=== PATIENT | female | born 1950 | race Caucasian/White ===

== ENCOUNTER → 2017-11-15 09:09 | Outpatient (CLI) | payer OTHER, SELFPAY ==
--- NOTE | 2017-11-15 09:20 | DI.MRI.S_ITS ---
PROCEDURE: MR THORACIC SPINE WO CON INDICATIONS: Thoracic radiculopathy TECHNIQUE: Noncontrast sagittal T1 spine echo and T2 fast spin echo, sagittal STIR, axial T1 and T2 fast spin echo through the thoracic spine. COMPARISON: [facility], MR, MR CERVICAL SPINE WITHOUT CONTRAST, 07/23/2017, 10:24. FINDINGS: Image quality: Excellent. Alignment and Curvature: There is normal bony alignment except for slight levoscoliosis centered at the lower thoracic spine. Bone Marrow: Marrow is of normal overall signal except at T2 where an ovoid centrally positioned vertebral body presumed hemangioma is again seen previously present on cervical MR scanning 07/23/17. No acute vertebral body compression fractures. There is mild to moderate degenerative disc disease along the thoracic spine, but no significant spinal or foraminal stenosis is associated. Degenerative disc disease is most prominent at T8-9 with a mild degree of adjacent edema in the vertebral endplates and anterior subcortical marrow space as a result. Spinal Cord: Visualized spinal cord is normal in size and signal. Paraspinous Soft Tissues: No paravertebral masses. Miscellaneous: On axial images, central canal and foramina appear widely patent at all scanned levels. IMPRESSION: Again noted is a T2 vertebral body hemangioma centrally positioned within the T2 marrow space, present on prior cervical MR scanning that included that area. Along the cervical and visualized thoracic spine no worsening degenerative changes are seen from the area included during cervical MR scanning 07/23/17. No compression fracture is found. There is a mild inflammatory component of degenerative disc disease with a slight degree of associated marrow edema adjacent to the T8-T9 anterior vertebral endplates. No disc herniation is seen, and no paravertebral mass or inflammatory process is found. No suspicion for discitis or osteomyelitis. Dictated by: Bridger Sebastian M.D. on 11/15/2017 at 11:04 Approved by: Bridger Sebastian M.D. on 11/15/2017 at 11:11
== END ==
PROVIDERS: Visit Provider Physical Medicine & Rehabilitation
DX: M54.14 Radiculopathy, thoracic region (principal); D18.09 Hemangioma of other sites; M51.34 Other intervertebral disc degeneration, thoracic region
CPT/HCPCS: 72146

== ENCOUNTER → 2017-12-20 08:31 | Outpatient (CLI) | payer OTHER, SELFPAY ==
--- NOTE | 2017-12-20 08:37 | DI.MRI.S_ITS ---
PROCEDURE: MR LUMBAR SPINE WO CON INDICATIONS: LOW BACK PAIN TECHNIQUE: Noncontrast sagittal T1 spin echo and T2 fast echo, sagittal STIR, axial T1 and T2 fast spin echo through the lumbar spine. In cases with scoliosis, additional coronal T2 fast spin echo may be performed. COMPARISON: [facility], MR, MR THORACIC SPINE WO CON, 11/15/2017, 10:01. FINDINGS: Image quality: Excellent. Alignment and Curvature: S-shaped scoliotic curvature is seen on rabble furnace tender images. Minimal retrolisthesis is seen at L1-L2 and L2-L3. There is minimal anterolisthesis seen at L5-S1. Bone Marrow: Marrow is of normal overall signal. No acute vertebral body compression fractures. Spinal Cord: Conus medullaris terminates at the T12-L1 level. Visualized cord demonstrates normal signal and size. Paraspinous Soft Tissues: No paravertebral masses. Left peripelvic renal cysts are incidentally noted. T12-L1: At least moderate loss of disc height and disc signal can be seen. Mild generalized disc bulge is seen. Mild facet joint hypertrophy is seen. There is moderate right-sided and no significant left-sided neural foraminal narrowing seen. No significant central canal narrowing is seen. L1-L2: At least moderate loss of disc height and disc signal are seen. Mild loss of disc height is seen. Loss of disc signal is seen. There is mild to moderate right-sided and moderate left-sided neural narrowing seen. Mild central canal narrowing is seen. L2-L3: Moderate loss of disc height is seen. Loss of disc signal is seen. Mild generalized disc bulge is seen. Mild facet joint hypertrophy is seen. There is mild right-sided and minimal left-sided neural foraminal narrowing seen. Mild central canal narrowing is seen. L3-L4: Moderate loss of disc height is seen. Loss of disc signal is seen. Mild to moderate disc bulge is seen. Moderate bilateral neural foraminal narrowing is seen, left worse than right. Mild central canal narrowing is seen. L4-L5: Mild loss of disc height is seen. Loss of disc signal is seen. Mild generalized disc bulge is seen. Moderate facet joint hypertrophy is seen. No significant neural foraminal narrowing is seen. Mild central canal narrowing is seen. L5-S1: Mild to moderate loss of disc height and disc signal are seen. Moderate disc bulge is seen. Moderate to prominent facet hypertrophy is seen. There is moderate right-sided and no significant left-sided neural foraminal narrowing seen. Minimal central canal narrowing is seen. IMPRESSION: Multiple levels of lumbar spine degenerative change are seen, including moderate bilateral neural foraminal narrowing at L3-L4. Dictated by: Dennys Garcia M.D. on 12/20/2017 at 9:22 Approved by: Dennys Garcia M.D. on 12/20/2017 at 9:30
== END ==
PROVIDERS: PCP Family Medicine; Visit Provider Physical Medicine & Rehabilitation
DX: M51.36 Other intervertebral disc degeneration, lumbar region (principal); M51.37 Other intervertebral disc degeneration, lumbosacral region; M48.061 Spinal stenosis, lumbar region without neurogenic claudication; M48.07 Spinal stenosis, lumbosacral region; M54.5 Low back pain
CPT/HCPCS: 72148

== ENCOUNTER 2018-01-08 07:26 | Outpatient (CLI) | payer OTHER, SELFPAY ==
[2018-01-08] VITALS (13 sets, daily range): BP systolic 90–125; BP diastolic 55–73; PULSE 59–67; RESP 16–20; TEMP 36.1; O2SAT 99–100
--- NOTE | 2018-01-08 07:27 | DI.RAD.S_ITS ---
PROCEDURE: PAIN L/S TRANSFORAMINAL INJECT INDICATIONS: HNP with right lower extremity radicular FINDINGS: Fluoroscopic spot filming was performed to verify placement of spinal needles at the L1-L2 level(s), as labeled on the films. Appropriate location(s) of the needle tip(s) was confirmed by injection of iodinated contrast. IMPRESSION: Successful transforaminal epidural steroid injection localization position. Dictated by: Bridger Sebastian M.D. on 01/10/2018 at 11:35 Approved by: Bridger Sebastian M.D. on 01/10/2018 at 11:50
--- NOTE | 2018-01-08 08:13 | P.PCN_ITS ---
Procedures Date/Time Date of procedure: 01/08/18 Time of procedure: 08:10 General Procedure description: PROVIDER: Nasim Child DO Operative Note PREOP DIAGNOSIS 1. FORAMINAL STENOSIS WITH LE SYMPTOMS, POST OP DIAGNOSIS 1. FORAMINAL STENOSIS WITH LE SYMPTOMS, PROCEDURES 1. FLUOROSCOPICALLY GUIDED CONTRAST CONTROLLED TRANSFORAMINAL EPIDURAL STEROID INJECTION - RIGHT L1/2 TFESI SURGEON: Nasim Child, DO INDICATIONS Sharron is referred by Dr. Kumar for treatment of Foraminal Stenosis with right LE Symptoms FINDINGS Foraminal Nerve Root Compression secondary to disc disease and facet hypertrophy DESCRIPTION OF PROCEDURE Following denial of allergy and review of potential side effects and complications, including, but not necessarily limited to, infection, allergic reaction, local tissue breakdown, stroke, temporary or permanent nerve injury, paralysis, and possible , the patient indicated that the patient understood and agreed to proceed. An informed consent document was signed by the patient, witnessed by a nurse, and placed in the patient's chart. Additionally, other treatment options including medications, modalities, and physical therapy were reviewed with the patient. After review of previous anaesthesic history and IV conscious sedation the patient was deemed safe to proceed with todays procedure with IV conscious sedation as ASA class II designation. Safety time-out was performed to confirm patient ID, procedure to be performed and site of procedure. IV sedation was accomplished with a combination of 3mg was administered by the RN after DO order , titrated to patient comfort during the course of the procedure while the patient remained responsive to all verbal commands In the prone position following sterile prep and drape of the lumbar region, the right L1/2 posterior neuroforamen was identified fluoroscopically. The skin was anesthetized via a 25-gauge 1.5-inch needle with 1% lidocaine solution. At this point, a 25-gauge 3.5-inch spinal needle was atraumatically introduced and advanced under fluoroscopic guidance through the posterior right L1/2 neuroforamen to approximately the anterior aspect of the canal. Depth was confirmed on lateral view. Following negative aspiration, injection of approximately 1.5 cc of Isovue 200 under live fluoroscopy in the AP view confirmed excellent flow along the nerve root, into the epidural space without vascular or intrathecal uptake observed Radiological data, including multiple fluoroscopic views of the lumbosacral spine, reveal a spinal needle at the right L1/2 posterior neuroforamen. Subsequent views show flow of contrast material flowing superiorly and inferiorly along the nerve root confirming epidural flow. Subsequently, a test dose of 1.5 cc of 1% lidocaine solution was administered and patient was observed for two minutes for signs or symptoms of complications , including abdominal pain, shortness of breath, bilateral upper or lower extremity weakness, nausea and vomiting, prior to steroid injection. At this point, a total of 3 cc or 20 mg of dexamethasone and 80mg Depo medrol was injected without incident. The patient tolerated the procedure well without signs or symptoms of complications prior to transfer to the recovery area continued monitoring without incident. The patient was then transferred to the recovery area where they were observed for an appropriate time after the injection. The patient reported a VAS score of 7 prior to the procedure and a post-procedure VAS of 0. Total Fluoroscopy Time: 24.2 seconds Total Conscious Sedation Time: 24min POST OP INSTRUCTIONS The patient was provided a Pain Log to continue to record their response to the target-specific procedure prior to follow-up visit with their referring physician. Additionally, specific post-injection care instructions and a contact number to our office were provided if concerns arise regarding possible complications associated with the procedure are suspected. Nasim Child, Complications: none
[2018-01-08] MEDS: MIDAZOLAM 5 MG/5 ML VIAL IV (08:33)
[2018-01-08] MEDS: IOPAMIDOL 15 ML VIAL 3 ML INJ (08:44)
[2018-01-08] MEDS: BUPIVACAINE 0.25% (PF) VIAL 2 ML INJ (08:45)
[2018-01-08] MEDS: methylPREDNISolone acetate 80 MG/ML VIAL INJ (08:45)
[2018-01-08] MEDS: DEXAMETHASONE 10 MG/ML VIAL 20 MG INJ (08:45)
--- NOTE | 2018-01-08 09:30 | PC.NURSE ---
Continues weak on right leg. Stays for observation
== END 2018-01-08 10:48 ==
LOC: RAD 07:26
PROVIDERS: PCP Family Medicine; Visit Provider Physical Medicine & Rehabilitation
DX: M51.36 Other intervertebral disc degeneration, lumbar region (principal); M54.16 Radiculopathy, lumbar region
CPT/HCPCS: 64483; 99152; J1040; J1100; J2250

== ENCOUNTER → 2018-01-31 12:26 | Outpatient (CLI) | payer OTHER, SELFPAY ==
--- NOTE | 2018-01-31 12:27 | DI.RAD.S_ITS ---
PROCEDURE: XR LUMBAR SPINE MIN 4V INDICATIONS: eval TECHNIQUE: 5 views of the lumbar spine were acquired. COMPARISON: None. FINDINGS: Bones: There is L2 compression fracture with minimal height loss. Diffuse endplate spurring and sclerosis is seen. No other vertebral body fractures identified. Lower lumbar spine facet arthropathy. Grade 1 retrolisthesis of L1 on L2 and trace retrolisthesis of L3 on L4. Grade 1 anterolisthesis of L5 on S1. Moderate narrowing of the L5-S1 disc space as well as the L1-L2 and L2-L3 disc spaces. Bilateral mild hip joint degeneration. There is dextrocurvature centered at L3 Soft tissues: Overlying bowel gas pattern is normal. No suspicious soft tissue calcifications. Oblique images: No pars defects although evaluation is suboptimal due to arthritic changes. IMPRESSION: Mild L1 compression fracture. Diffuse multilevel lumbar disc degeneration as above. Grade 1 retrolisthesis of L1-L2. Lower lumbar facet arthropathy. Dictated by: Shai Mcqueen M.D. on 01/31/2018 at 14:24 Approved by: Shai Mcqueen M.D. on 01/31/2018 at 14:27
== END ==
PROVIDERS: PCP Family Medicine; Visit Provider Physical Medicine & Rehabilitation
DX: M51.26 Other intervertebral disc displacement, lumbar region (principal); M48.56XA Collapsed vertebra, not elsewhere classified, lumbar region, initial encounter for fracture; M51.36 Other intervertebral disc degeneration, lumbar region; M43.16 Spondylolisthesis, lumbar region; M47.816 Spondylosis without myelopathy or radiculopathy, lumbar region
CPT/HCPCS: 72110

== ENCOUNTER 2018-02-12 10:57 | Outpatient (CLI) | payer OTHER, SELFPAY ==
[2018-02-12] VITALS (12 sets, daily range): BP systolic 98–137; BP diastolic 61–98; PULSE 67–89; RESP 16–20; TEMP 36.1; O2SAT 98–100
--- NOTE | 2018-02-12 10:58 | DI.RAD.S_ITS ---
PROCEDURE: PAIN L/S TRANSFORAMINAL INJECT INDICATIONS: INTERVERTEBRAL DISC DISPLACEMENT FINDINGS: Fluoroscopic spot filming was performed to verify placement of spinal needles at the right L3-4 intervertebral neural foramen, as labeled on the films. Appropriate location(s) of the needle tip(s) was confirmed by injection of iodinated contrast. IMPRESSION: Successful needle tip localization for transforaminal epidural steroid injection on the right at the L3-4 neural foramen. Dictated by: Bridger Sebastian M.D. on 02/12/2018 at 15:41 Approved by: Bridger Sebastian M.D. on 02/12/2018 at 15:41
[2018-02-12] MEDS: MIDAZOLAM 5 MG/5 ML VIAL IV (11:51)
[2018-02-12] MEDS: BUPIVACAINE 0.25% (PF) VIAL 2 ML INJ (11:58)
[2018-02-12] MEDS: DEXAMETHASONE 10 MG/ML VIAL 20 MG INJ (11:59)
[2018-02-12] MEDS: IOPAMIDOL 15 ML VIAL 3 ML INJ (11:59)
[2018-02-12] MEDS: methylPREDNISolone acetate 80 MG/ML VIAL INJ (11:59)
--- NOTE | 2018-02-12 12:12 | P.PCN_ITS ---
Procedures Date/Time Date of procedure: 02/12/18 Time of procedure: 12:10 General Procedure description: PROVIDER: Nasim Child DO Operative Note PREOP DIAGNOSIS 1. FORAMINAL STENOSIS WITH LE SYMPTOMS, POST OP DIAGNOSIS 1. FORAMINAL STENOSIS WITH LE SYMPTOMS, PROCEDURES 1. FLUOROSCOPICALLY GUIDED CONTRAST CONTROLLED TRANSFORAMINAL EPIDURAL STEROID INJECTION - RIGHT L3/4 TFESI SURGEON: Nasim Child, DO INDICATIONS Sharron is referred by Dr. Kumar for treatment of Foraminal Stenosis with right LE Symptoms FINDINGS Foraminal Nerve Root Compression secondary to disc disease and facet hypertrophy DESCRIPTION OF PROCEDURE Following denial of allergy and review of potential side effects and complications, including, but not necessarily limited to, infection, allergic reaction, local tissue breakdown, stroke, temporary or permanent nerve injury, paralysis, and possible , the patient indicated that the patient understood and agreed to proceed. An informed consent document was signed by the patient, witnessed by a nurse, and placed in the patient's chart. Additionally, other treatment options including medications, modalities, and physical therapy were reviewed with the patient. After review of previous anaesthesic history and IV conscious sedation the patient was deemed safe to proceed with todays procedure with IV conscious sedation as ASA class II designation. Safety time-out was performed to confirm patient ID, procedure to be performed and site of procedure. IV sedation was accomplished with a combination of 3mg was administered by the RN after DO order , titrated to patient comfort during the course of the procedure while the patient remained responsive to all verbal commands In the prone position following sterile prep and drape of the lumbar region, the right L3/4 posterior neuroforamen was identified fluoroscopically. The skin was anesthetized via a 25-gauge 1.5-inch needle with 1% lidocaine solution. At this point, a 25-gauge 3.5-inch spinal needle was atraumatically introduced and advanced under fluoroscopic guidance through the posterior right L3/4 neuroforamen to approximately the anterior aspect of the canal. Depth was confirmed on lateral view. Following negative aspiration, injection of approximately 1.5 cc of Isovue 200 under live fluoroscopy in the AP view confirmed excellent flow along the nerve root, into the epidural space without vascular or intrathecal uptake observed Radiological data, including multiple fluoroscopic views of the lumbosacral spine, reveal a spinal needle at the right L3/4 posterior neuroforamen. Subsequent views show flow of contrast material flowing superiorly and inferiorly along the nerve root confirming epidural flow. Subsequently, a test dose of 1.5 cc of 1% lidocaine solution was administered and patient was observed for two minutes for signs or symptoms of complications , including abdominal pain, shortness of breath, bilateral upper or lower extremity weakness, nausea and vomiting, prior to steroid injection. At this point, a total of 3 cc or 20 mg of dexamethasone and 80mg Depo medrol was injected without incident. The patient tolerated the procedure well without signs or symptoms of complications prior to transfer to the recovery area continued monitoring without incident. The patient was then transferred to the recovery area where they were observed for an appropriate time after the injection. The patient reported a VAS score of 7 prior to the procedure and a post-procedure VAS of 0. Total Fluoroscopy Time: 24.2 seconds Total Conscious Sedation Time: 24min POST OP INSTRUCTIONS The patient was provided a Pain Log to continue to record their response to the target-specific procedure prior to follow-up visit with their referring physician. Additionally, specific post-injection care instructions and a contact number to our office were provided if concerns arise regarding possible complications associated with the procedure are suspected. Nasim Child, Complications: none
== END 2018-02-12 12:55 ==
LOC: RAD 10:57
PROVIDERS: PCP Family Medicine; Visit Provider Physical Medicine & Rehabilitation
DX: M48.061 Spinal stenosis, lumbar region without neurogenic claudication (principal); M51.16 Intervertebral disc disorders with radiculopathy, lumbar region
CPT/HCPCS: 64483; 99152; J1040; J1100; J2250

== ENCOUNTER 2018-08-05 10:46 | Outpatient (CLI) | payer OTHER, SELFPAY ==
[2018-08-05] VITALS (9 sets, daily range): BP systolic 99–128; BP diastolic 55–81; PULSE 67–81; RESP 16–18; TEMP 37.3; O2SAT 96–99
--- NOTE | 2018-08-05 10:47 | DI.RAD.S_ITS ---
PROCEDURE: PAIN L/S TRANSFORAMINAL INJECT INDICATIONS: INTERVERTEBRAL DISC DISPLACEMENT FINDINGS: Fluoroscopic spot filming was performed to verify placement of spinal needles at the left L3-4 neural foramen level, as labeled on the films. Appropriate location(s) of the needle tip(s) was confirmed by injection of iodinated contrast. IMPRESSION: Successful left L3 perineural injection for epidural steroid administration. Dictated by: Bridger Sebastian M.D. on 08/05/2018 at 16:33 Approved by: Bridger Sebastian M.D. on 08/05/2018 at 16:33
[2018-08-05] MEDS: MIDAZOLAM 5 MG/5 ML VIAL IV (14:57)
[2018-08-05] MEDS: BUPIVACAINE 0.25% (PF) VIAL 2 ML INJ (15:01)
[2018-08-05] MEDS: DEXAMETHASONE 10 MG/ML VIAL 20 MG INJ (15:02)
[2018-08-05] MEDS: IOPAMIDOL 15 ML VIAL 3 ML INJ (15:02)
--- NOTE | 2018-08-05 15:04 | PC.NURSE ---
ASSISTING PT OFF TABLE AND TRANSPORTING TO POST PROC AREA IN STABLE CONDITION
--- NOTE | 2018-08-05 15:10 | PM.PROC.1 ---
Procedures Date/Time Date of procedure: 08/05/18 Time of procedure: 15:10 General Procedure description: PROVIDER: Nasim Child DO Operative Note PREOP DIAGNOSIS 1. FORAMINAL STENOSIS WITH LE SYMPTOMS, POST OP DIAGNOSIS 1. FORAMINAL STENOSIS WITH LE SYMPTOMS, PROCEDURES 1. FLUOROSCOPICALLY GUIDED CONTRAST CONTROLLED TRANSFORAMINAL EPIDURAL STEROID INJECTION - LEFT L3/4 TFESI SURGEON: Nasim Child, DO INDICATIONS Sharron is referred by Dr. Maciel for treatment of Foraminal Stenosis with left LE Symptoms FINDINGS Foraminal Nerve Root Compression secondary to disc disease and facet hypertrophy. DESCRIPTION OF PROCEDURE Following denial of allergy and review of potential side effects and complications, including, but not necessarily limited to, infection, allergic reaction, local tissue breakdown, stroke, temporary or permanent nerve injury, paralysis, and possible , the patient indicated that the patient understood and agreed to proceed. An informed consent document was signed by the patient, witnessed by a nurse, and placed in the patient's chart. Additionally, other treatment options including medications, modalities, and physical therapy were reviewed with the patient. After review of previous anaesthesic history and IV conscious sedation the patient was deemed safe to proceed with todays procedure with IV conscious sedation as ASA class II designation. Safety time-out was performed to confirm patient ID, procedure to be performed and site of procedure. IV sedation was accomplished with a combination of 3mg of Versed was administered by the RN after DO order, titrated to patient comfort during the course of the procedure while the patient remained responsive to all verbal commands In the prone position following sterile prep and drape of the lumbar region, the left L3/4 posterior neuroforamen was identified fluoroscopically. The skin was anesthetized via a 25-gauge 1.5-inch needle with 1% lidocaine solution. At this point, a 25-gauge 3.5-inch spinal needle was atraumatically introduced and advanced under fluoroscopic guidance through the posterior left L3/4 neuroforamen to approximately the anterior aspect of the canal. Depth was confirmed on lateral view. Following negative aspiration, injection of approximately 1.5 cc of Isovue 200 under live fluoroscopy in the AP view confirmed excellent flow along the nerve root, into the epidural space without vascular or intrathecal uptake observed Radiological data, including multiple fluoroscopic views of the lumbosacral spine, reveal a spinal needle at the left L3/4 posterior neuroforamen. Subsequent views show flow of contrast material flowing superiorly and inferiorly along the nerve root confirming epidural flow. Subsequently, a test dose of 1.5 cc of 1% lidocaine solution was administered and patient was observed for two minutes for signs or symptoms of complications, including abdominal pain, shortness of breath, bilateral upper or lower extremity weakness, nausea and vomiting, prior to steroid injection. At this point, a total of 2cc or 20mg of dexamethasone was injected without incident. The patient tolerated the procedure well without signs or symptoms of complications prior to transfer to the recovery area continued monitoring without incident. The patient was then transferred to the recovery area where they were observed for an appropriate time after the injection. The patient reported a VAS score of 7 prior to the procedure and a post-procedure VAS of 0. Total Fluoroscopy Time: 24.2 seconds Total Conscious Sedation Time: 24min POST OP INSTRUCTIONS The patient was provided a Pain Log to continue to record their response to the target-specific procedure prior to follow-up visit with their referring physician. Additionally, specific post-injection care instructions and a contact number to our office were provided if concerns arise regarding possible complications associated with the procedure are suspected. Nasim Child DO Complications: none
--- NOTE | 2018-08-05 15:29 | PC.NURSE ---
pt returned via wheelchair awake and alert. Able to move from w/c to chair with standby assist. Resumed monitoring from Izabel BARRETO.
== END 2018-08-05 15:52 ==
LOC: RAD 10:46
PROVIDERS: PCP Family Medicine; Visit Provider Physical Medicine & Rehabilitation
DX: M48.061 Spinal stenosis, lumbar region without neurogenic claudication (principal); M51.16 Intervertebral disc disorders with radiculopathy, lumbar region
CPT/HCPCS: 64483; 99152; J1100; J2250; J3010

== ENCOUNTER → 2018-08-05 10:48 | Outpatient (CLI) | payer OTHER, SELFPAY ==
--- NOTE | 2018-08-05 | DI.MG.S_ITS ---
BILATERAL DIGITAL SCREENING MAMMOGRAM 3D/2D WITH CAD: 08/05/2018 CLINICAL: Routine screening. Family history of breast cancer. Comparison is made to exams dated: 07/22/2017 mammogram, 06/26/2016 mammogram, and 05/30/2015 mammogram - [facility] [place]. There are scattered fibroglandular elements in both breasts. Current study was also evaluated with a Computer Aided Detection (CAD) system. No significant masses, calcifications, or other findings are seen in either breast. There are linear scar markers overlying the breasts bilaterally. There has been no significant interval change. IMPRESSION: NEGATIVE There is no mammographic evidence of malignancy. A 1 year screening mammogram is recommended. This exam was interpreted at Station ID: [id number]. NOTE: For mammograms, a report in lay terms will be sent to the patient. Approximately 15% of breast malignancies will not be visualized mammographically. In the management of a palpable breast mass, a negative mammogram must not discourage biopsy of a clinically suspicious lesion. Electronically Signed By: Kory Garcia M.D. ecl/:08/05/2018 17:38:44 letter sent: Normal Exam ACR BI-RADS Category 1: Negative [id number]
--- NOTE | 2018-08-06 16:42 | PC.NURSE ---
Follow up call made and pt reports doing well today, said she slept most of yesterday after procedure, but was also able to sleep through the night. She still has a little hiccup in her left hip if she moves just the right way. Otherwise she is doing great.
== END ==
PROVIDERS: PCP Family Medicine; Visit Provider Family Medicine
DX: Z12.31 Encounter for screening mammogram for malignant neoplasm of breast (principal); Z80.3 Family history of malignant neoplasm of breast
CPT/HCPCS: 77063; 77067

== ENCOUNTER → 2020-05-25 13:00 | Outpatient (CLI) | payer OTHER, SELFPAY ==
--- NOTE | 2020-05-25 13:02 | DI.RAD.S_ITS ---
PROCEDURE: XR THORACIC SPINE 3V INDICATIONS: thoracic radiculopathy TECHNIQUE: 3 views of the thoracic spine were acquired. COMPARISON: None. FINDINGS: Bones: No fractures or dislocations. No suspicious bony lesions. There is [id number] kyphosis centered at T7-8 level. Mild to moderate leftward scoliosis of lower thoracic spine centered at T10-11 level is also seen. Degenerative endplate changes are noted throughout mid to lower thoracic spine. 12 pairs of ribs are noted, and appear intact where visualized. Soft tissues: No paravertebral stripe thickening. IMPRESSION: Scoliosis and kyphosis of thoracic spine as above. No acute compression fracture or spondylolisthesis. Degenerative disc disease throughout mid to lower thoracic spine. Dictated by: Luis Eduardo Krueger M.D. on 05/25/2020 at 13:35 Approved by: Luis Eduardo Krueger M.D. on 05/25/2020 at 13:47
== END ==
PROVIDERS: PCP Family Medicine; Referring Provider Physical Medicine & Rehabilitation; Visit Provider Physical Medicine & Rehabilitation
DX: M41.84 Other forms of scoliosis, thoracic region (principal); M54.14 Radiculopathy, thoracic region; M51.26 Other intervertebral disc displacement, lumbar region; M51.34 Other intervertebral disc degeneration, thoracic region; M48.02 Spinal stenosis, cervical region; M41.80 Other forms of scoliosis, site unspecified; M51.04 Intervertebral disc disorders with myelopathy, thoracic region
CPT/HCPCS: 72072; 99214

== ENCOUNTER → 2020-06-13 13:23 | Outpatient (CLI) | payer OTHER, SELFPAY ==
[2020-06-13 15:21] LABS: COVID19 -Nasal RAPID Negative (Negative)
== END ==
PROVIDERS: PCP Family Medicine; Visit Provider Physical Medicine & Rehabilitation
DX: Z20.822 Contact with and (suspected) exposure to COVID-19 (principal)
CPT/HCPCS: 87635; C9803

== ENCOUNTER 2020-06-14 07:26 | Outpatient (CLI) | payer OTHER, SELFPAY ==
[2020-06-14] VITALS (10 sets, daily range): BP systolic 101–128; BP diastolic 51–64; PULSE 56–65; RESP 12–20; TEMP 36.1–36.6; O2SAT 94–100
--- NOTE | 2020-06-14 07:27 | DI.RAD.S_ITS ---
PROCEDURE: PAIN C/T INTERLAMINAR INJECT INDICATIONS: SPONDYLOSIS COMPARISON: None. FINDINGS: Fluoroscopic spot filming was performed to verify placement of spinal needles at the T9-T10 level(s), as labeled on the films. Appropriate location(s) of the needle tip(s) was confirmed by injection of iodinated contrast. Dictated by: Shai Mcqueen M.D. on 06/14/2020 at 9:51 Approved by: Shai Mcqueen M.D. on 06/14/2020 at 9:52
[2020-06-14] MEDS: MIDAZOLAM 5 MG/5 ML VIAL IV (08:15)
[2020-06-14] MEDS: fentaNYL 100 MCG/2 ML INJ 50 MCG IV (08:15)
[2020-06-14] MEDS: BUPIVACAINE 0.25% (PF) VIAL 2 ML INJ (08:21)
[2020-06-14] MEDS: IOPAMIDOL 15 ML VIAL 3 ML INJ (08:21)
[2020-06-14] MEDS: DEXAMETHASONE 10 MG/ML VIAL 30 MG INJ (08:22)
--- NOTE | 2020-06-14 08:42 | PM.PROC.IR.1 ---
Date/Time/Diagnoses Date of procedure: 06/14/20 Time of procedure: 08:42 Pre-procedure diagnosis: Thoracic stenosis with HNP Post-procedure diagnosis: same Procedure Notes Procedure: Fluoroscopic guided, contrast controlled T9/10 translaminar epidural steroid injection with conscious sedation. Indications: Sharron is referred by Dr. Cook for treatment of thoracic DDD/DJD with radiculopathy Physician: Nasim Child Total Fluoroscopy time (seconds): 23 Total sedation minutes: 18 Complications: none Procedure in detail & Post-procedure care: DESCRIPTION OF PROCEDURE Fluoroscopic guided, contrast controlled T9/10 translaminar epidural steroid injection with conscious sedation. Following review of allergy review potential side effects and complications, including, but not necessarily limited to, infection, allergic reaction, local tissue breakdown, temporary as well as permanent nerve injury, stroke, paralysis and possible , the patient indicated that they understood and agreed to proceed. An informed consent document was signed by the patient, witnessed by the nurse, and placed in the patient's chart. Additionally other treatment options including modalities, medications and physical therapy were reviewed with the patient. After review of previous anaesthesic history and IV conscious sedation the patient was deemed safe to proceed with today's procedure with IV conscious sedation as ASA class II designation. Safety time-out was performed to confirm patient ID, procedure to be performed and site of procedure. IV sedation was accomplished with a combination of 2mg of Versed and 50mcg of Fentanyl administered by the RN after DO order, titrated to patient comfort during the course of the procedure while the patient remained responsive to all verbal commands In the prone position, following sterile prep and drape of the thoracic region the T9/10 translaminar space was identified fluoroscopically. The skin was anesthetized via 25 gauge 1.5inch needle with 1% lidocaine solution. At this point a 22gauge epidural needle was atraumatically introduced and advanced under fluoroscopic guidance into the region of the T9/10 translaminar space depth was confirmed on lateral view. Radiographic data, including multiple fluoroscopic views of the thoracic spine, reveals spinal needle at the T9/10 translaminar space. Lateral views then showed the placement of the needle in the epidural space. Subsequent view show contrast material flowing superiorly and inferiorly in the epidural space. No vascular or intrathecal uptake is observed. At this point using loss of resistance technique with saline and the epidural space was entered. This was confirmed followed negative aspiration and injection of approximately 1.5cc of Isovue 200 showed excellent epidural flow without vascular or intrathecal uptake. At this point, 1 cc of 1% lidocaine solution was admitted as a test dose and the patient was observed for an appropriate period of time without signs or symptoms of complications, including abdominal pain, shortness of breath, bilateral upper and lower extremity weakness, nausea and vomiting, prior to steroid injection. Subsequently, 3cc or 30mg of dexamethasone was then injected without incident. The patient tolerated the procedure well without signs of complications and subsequently was transferred to the recovery room for further monitoring. The patient was then transferred to the recovery area with their observed for an appropriate time after the injection. Patient reported a VAS score of 7 prior to the procedure and post-procedure VAS of 2.
== END 2020-06-14 08:50 | disposition home or self-care (01) ==
LOC: RAD 07:26
PROVIDERS: PCP Family Medicine; Referring Provider Family Medicine; Visit Provider Physical Medicine & Rehabilitation
DX: M48.04 Spinal stenosis, thoracic region (principal); M51.14 Intervertebral disc disorders with radiculopathy, thoracic region; M47.24 Other spondylosis with radiculopathy, thoracic region
CPT/HCPCS: 62321; 99152; J1100; J2250; J3010

== ENCOUNTER → 2020-08-10 10:38 | Outpatient (CLI) | payer OTHER, SELFPAY ==
--- NOTE | 2020-08-10 10:39 | DI.RAD.S_ITS ---
PROCEDURE: XR LUMBAR SPINE MIN 4V INDICATIONS: Lower back pain TECHNIQUE: 5 views of the lumbar spine were acquired, including bilateral oblique views. COMPARISON: [facility], CR, XR LUMBAR SPINE MIN 4V, 01/31/2018, 12:12. FINDINGS: Bones: 5 nonrib-bearing vertebrae are present. There is mildly scoliotic bony alignment. With slight convex rightward scoliosis at the mid lumbosacral spine and slight convex leftward scoliosis at the lower 3rd of the thoracic spine. No vertebral body compression fractures. No suspicious bony lesions. Degenerative disc height reduction is equivalent to that present in 2018 and no compression fracture is found. There is again noted to be a slight anterolisthesis of L5 on S1 likely due to both disc height reduction and facet osteoarthritis allowing ligamentous laxity at this level. Soft tissues: Overlying bowel gas pattern is normal. No suspicious soft tissue calcifications. Oblique images: No pars defects. IMPRESSION: No appreciable worsening of degenerative changes along the lumbosacral spine including mild grade 1 anterolisthesis of L5 on S1 associated with disc height reduction and facet osteoarthritis bilaterally. No compression fracture found. Dictated by: Bridger Sebastian M.D. on 08/10/2020 at 12:16 Approved by: Bridger Sebastian M.D. on 08/10/2020 at 12:18
== END ==
PROVIDERS: PCP Family Medicine; Referring Provider Physical Medicine & Rehabilitation; Visit Provider Physical Medicine & Rehabilitation
DX: M51.26 Other intervertebral disc displacement, lumbar region (principal); M47.817 Spondylosis without myelopathy or radiculopathy, lumbosacral region; M43.17 Spondylolisthesis, lumbosacral region; M41.87 Other forms of scoliosis, lumbosacral region
CPT/HCPCS: 72110

== ENCOUNTER → 2021-03-07 09:55 | Outpatient (CLI) | payer OTHER, SELFPAY ==
[2021-03-07 11:46] LABS: COVID19 -Nasal RAPID Negative (Negative)
== END ==
PROVIDERS: PCP Family Medicine; Visit Provider Physical Medicine & Rehabilitation
DX: Z20.822 Contact with and (suspected) exposure to COVID-19 (principal)
CPT/HCPCS: 87635; C9803

== ENCOUNTER 2021-03-09 07:19 | Outpatient (CLI) | payer OTHER, SELFPAY ==
[2021-03-09] VITALS (9 sets, daily range): BP systolic 105–154; BP diastolic 60–84; PULSE 61–72; RESP 8–16; TEMP 36.7; O2SAT 93–100
--- NOTE | 2021-03-09 07:22 | DI.RAD.S_ITS ---
PROCEDURE: PAIN SI JOINT INJECTION INDICATIONS: SACROILIAC DISORDER COMPARISON: [facility], XA, PAIN C/T INTERLAMINAR INJECT, 06/14/2020, 8:19. FINDINGS: On these intraprocedural images, there is a spinal needle seen overlying the inferior aspect of the right sacroiliac joint. Appropriate position of the tip of the needle was confirmed by injection of a small amount of iodinated contrast. IMPRESSION: Successful sacroiliac joint injection. Dictated by: Dennys Garcia M.D. on 03/09/2021 at 9:59 Approved by: Dennys Garcia M.D. on 03/09/2021 at 9:59
[2021-03-09] MEDS: fentaNYL 100 MCG/2 ML INJ 50 MCG IV (08:20)
[2021-03-09] MEDS: MIDAZOLAM 5 MG/5 ML VIAL IV (08:20)
[2021-03-09] MEDS: IOPAMIDOL 15 ML VIAL 3 ML INJ (08:27)
[2021-03-09] MEDS: BUPIVACAINE 0.5% (PF) VIAL 2 ML INJ (08:27)
[2021-03-09] MEDS: BETAMETHASONE 30 MG/5 ML MDV 12 MG INJ (08:28)
--- NOTE | 2021-03-09 08:38 | PM.PROC.IR.1 ---
Date/Time/Diagnoses Date of procedure: 03/09/21 Time of procedure: 08:39 Pre-procedure diagnosis: Sacroiliac joint pain/DJD Post-procedure diagnosis: same Procedure Notes Procedure: Fluoroscopically guided contrast controlled right sacroiliac joint injection Indications: Sharron is referred by Dr. Cook for treatment of right sacroiliac joint DJD Physician: Nasim Child Total Fluoroscopy time (seconds): 8 Total sedation minutes: 13 Complications: none Procedure in detail & Post-procedure care: DESCRIPTION OF PROCEDURE Fluoroscopically guided, contrast controlled right sacroiliac joint injection Following review of allergies and review of potential side effects and complications, including, but not necessarily limited to, infection, allergic reaction, local tissue breakdown, temporary as well as permanent nerve injury, paralysis, stroke and possible , the patient indicated that they understood and agreed to proceed. An informed consent was signed by the patient, witnessed by a nurse, and placed in the patient's chart. Additionally, other treatment options including modalities, medications, and physical therapy were reviewed with the patient. After review of previous anaesthesic history and IV conscious sedation the patient was deemed safe to proceed with today?s procedure with IV conscious sedation as ASA class II designation. Safety time-out was performed to confirm patient ID, procedure to be performed and site of procedure. IV sedation was accomplished with a combination of 2mg of Versed and 50mcg of Fentanyl was administered by the RN after DO order, titrated to patient comfort during the course of the procedure while the patient remained responsive to all verbal commands In the prone position following sterile prep and drape of the pelvic region, the hyper lucency on in the inferior aspect of the sacroiliac joint was identified fluoroscopically the skin was anesthetized be a 25 gauge 1 eventual with approximately 2 cc of 1% lidocaine solution. At this point, a 22 gauge 3 in spinal needle was atraumatically introduced and advanced under fluoroscopic guidance into the inferior aspect of the right sacroiliac joint. Following negative aspiration, approximately 0.3cc of Isovue-300 was injected confirming intra-articular placement without vascular uptake. Radiographic data, including multiple fluoroscopic views of the pelvis, reveals a spinal needle in the sacroiliac joint hyper lucent zone. Subsequent view show flow contrast tear superiorly and inferiorly within the joint capsule without vascular intrathecal uptake. At this point a total of 1 of 0.5% Marcaine was combined with 1cc of 6 mg of betamethasone was injected without incident. The procedure tolerated the procedure well without signs or symptoms of complications prior to transfer to the recovery area continued monitoring without incident. The patient was then transferred to the recovery area with a bur observed for an appropriate time after the injection. The patient reverted a vas score of 7 prior to the procedure and post-procedure vas of 1. POSTOP INSTRUCTIONS The patient was provided with a pain like to continue to record the patient's response to the target specific procedure prior to the patient's follow-up visit with the referring physician. Additionally, specific post injection care instructions and a contact number to our office were provided if concerns arise regarding the possible complications associated with procedure are suspected.
== END 2021-03-09 08:55 | disposition home or self-care (01) ==
LOC: RAD 07:21
PROVIDERS: PCP Family Medicine; Referring Provider Physical Medicine & Rehabilitation; Visit Provider Physical Medicine & Rehabilitation
DX: M53.3 Sacrococcygeal disorders, not elsewhere classified (principal); M46.1 Sacroiliitis, not elsewhere classified
CPT/HCPCS: 27096; 99152; J0702; J2250; J3010

== ENCOUNTER → 2021-06-20 13:44 | Outpatient (CLI) | payer OTHER, SELFPAY ==
[2021-06-20 14:56] LABS: COVID19 -Nasal RAPID Negative (Negative)
== END ==
PROVIDERS: PCP Family Medicine; Visit Provider Physical Medicine & Rehabilitation
DX: Z20.822 Contact with and (suspected) exposure to COVID-19 (principal)
CPT/HCPCS: 87635; C9803

== ENCOUNTER 2021-06-22 14:45 | Outpatient (CLI) | payer OTHER, SELFPAY ==
[2021-06-22] VITALS (10 sets, daily range): BP systolic 111–149; BP diastolic 59–76; PULSE 59–67; RESP 12–16; TEMP 36.9; O2SAT 96–100
--- NOTE | 2021-06-22 14:49 | DI.RAD.S_ITS ---
PROCEDURE: PAIN SI JOINT INJECTION LUX COMPARISON: None. INDICATIONS: SACROILIAC DISORDER FINDINGS: Fluoroscopic spot filming was performed to verify placement of spinal needles within both of the sacroiliac joints, as labeled on the films. Appropriate location of the needle tips was confirmed by injection of iodinated contrast. IMPRESSION: Intraprocedural examination within normal limits. Dictated by: Dennys Garcia M.D. on 06/22/2021 at 15:26 Approved by: Dennys Garcia M.D. on 06/22/2021 at 15:26
[2021-06-22] MEDS: MIDAZOLAM 5 MG/5 ML VIAL IV (15:25)
[2021-06-22] MEDS: fentaNYL 100 MCG/2 ML INJ 50 MCG IV (15:25)
[2021-06-22] MEDS: IOPAMIDOL 15 ML VIAL 3 ML INJ (15:29)
[2021-06-22] MEDS: BUPIVACAINE 0.5% (PF) VIAL 5 ML INJ (15:29)
[2021-06-22] MEDS: BETAMETHASONE 30 MG/5 ML MDV 12 MG INJ (15:30)
--- NOTE | 2021-06-22 15:43 | P.PCN_ITS ---
Date/Time/Diagnoses Date of procedure: 06/22/21 Time of procedure: 15:43 Pre-procedure diagnosis: Sacroiliac joint pain/DJD This procedure is found to meet the Governor's proclamation 20-24.2 regarding non urgent procedures. This patient meets multiple criteria for the procedure including continuing or worsening of significant or severe pain, combined with further deterioration of the patient's condition or overall health as well as delay in treatment would be expected to result in less positive ultimate medical outcome. Therefore the decision to perform the procedure in an outpatient hospital setting is found to be in accordance with guidelines of the proclamation. Post-procedure diagnosis: same Procedure Notes Procedure: Fluoroscopic guided contrast controlled bilateral sacroiliac joint injection Indications: Sharron is referred by Dr. Cook for treatment of bilateral sacroiliac joint DJD Physician: Nasim Child Total Fluoroscopy time (seconds): 11 Total sedation minutes: 12 Complications: none Procedure in detail & Post-procedure care: Description of procedure Fluoroscopic guided, contrast controlled bilateral sacroiliac joint injection Following review of allergies and review of potential side effects and complications, including, but not necessarily limited to, infection, allergic reaction, local tissue breakdown, temporary as well as permanent nerve injury, paralysis, stroke and possible , the patient indicated that they understood and agreed to proceed. An informed consent was signed by the patient, witnessed by a nurse, and placed in the patient's chart. Additionally, other treatment options including modalities, medications, and physical therapy were reviewed with the patient. After review of previous anaesthesic history and IV conscious sedation the patient was deemed safe to proceed with today?s procedure with IV conscious sedation as ASA class II designation. Safety time-out was performed to confirm patient ID, procedure to be performed and site of procedure. IV sedation was accomplished with a combination of 2mg Versed and 50mcg of Fentanyl were administered by the RN after DO order, titrated to patient comfort during the course of the procedure while the patient remained responsive to all verbal commands In the prone position following sterile prep and drape of the pelvic region, the hyper lucency on in the inferior aspect of the sacroiliac joint was identified fluoroscopically the skin was anesthetized be a 25 gauge 1.5 inch needle with approximately 2cc of 1% lidocaine solution. At this point, a 22 gauge 3 in spinal needle was atraumatically introduced and advanced under fluoroscopic guidance into the inferior aspect of the right sacroiliac joint. Following negative aspiration, approximately 0.3cc of Isovue-300 was injected confirming intra-articular placement without vascular uptake. Radiographic data, including multiple fluoroscopic views of the pelvis, reveals a spinal needle in the sacroiliac joint hyper lucent zone. Subsequent view show flow contrast tear superiorly and inferiorly within the joint capsule without vascular intrathecal uptake. At this point a total of 1cc of 0.5% Marcaine was combined with 1cc of 6mg of betamethasone was injected without incident. Attention was then refocused the left sacroiliac joint where the procedure was replicated. The procedure tolerated the procedure well without signs or symptoms of complications prior to transfer to the recovery area continued monitoring without incident. The patient was then transferred to the recovery area with a bur observed for an appropriate time after the injection. The patient reverted a vas score of 7 prior to the procedure and post-procedure vas of 1. Postop instructions The patient was provided with a pain like to continue to record the patient's response to the target specific procedure prior to the patient's follow-up visit with the referring physician. Additionally, specific post injection care in structions and a contact number to our office were provided if concerns arise regarding the possible complications associated with procedure are suspected.
== END 2021-06-22 16:04 | disposition home or self-care (01) ==
LOC: RAD 14:47
PROVIDERS: PCP Family Medicine; Referring Provider Physical Medicine & Rehabilitation; Visit Provider Physical Medicine & Rehabilitation
DX: M53.3 Sacrococcygeal disorders, not elsewhere classified (principal); M46.1 Sacroiliitis, not elsewhere classified
CPT/HCPCS: 27096; 99152; J0702; J2250; J3010

== ENCOUNTER → 2021-08-14 11:06 | Outpatient (CLI) | payer OTHER, SELFPAY ==
--- NOTE | 2021-08-14 11:08 | DI.MRI.S_ITS ---
PROCEDURE: MR LUMBAR SPINE WO CON INDICATIONS: Chronic progressive low back pain, bowel incontinence TECHNIQUE: Noncontrast sagittal T1 spin echo and T2 fast echo, sagittal STIR, axial T1 and T2 fast spin echo through the lumbar spine. Axial and oblique coronal T1 spin echo and STIR through the sacrum. In cases with scoliosis, additional coronal T2 fast spin echo may be performed. COMPARISON: [facility], MR, MR LUMBAR SPINE WO CON, 12/20/2017, 8:46. FINDINGS: Image quality: Excellent. Alignment and Curvature: There is normal bony alignment. Bone Marrow: Marrow is of normal overall signal. No acute vertebral body compression fractures. No sacral fractures. Spinal Cord: Conus medullaris terminates at the L1 level. Visualized cord demonstrates normal signal and size. Paraspinous Soft Tissues: No paravertebral masses. T12-L1: Disc space narrowing and circumferential disc bulge present without central or foraminal stenosis L1-L2: Disc space narrowing and circumferential disc bulge results in mild central stenosis. Moderate bilateral foraminal stenosis L2-L3: Disc space narrowing and circumferential disc bulge with hypertrophic facet joints present. No central stenosis. Mild bilateral foraminal stenosis L3-L4: Disc space narrowing and circumferential disc bulge asymmetric to the left. Mild central stenosis present. Hypertrophic facet joints results in moderate left foraminal stenosis. L4-L5: Disc height is preserved. Circumferential disc bulge present with hypertrophic facet joints resulting in mild central stenosis. No foraminal stenosis. L5-S1: A disc space narrowing with circumferential disc bulge and hypertrophic facet joints present. Mild central stenosis. Mild bilateral foraminal stenosis. IMPRESSION: 1. Multilevel degenerative disc disease and arthropathy resulting in varying degrees of central and foraminal stenosis including mild to moderate central stenosis at L1-2 Dictated by: Earnest Mann M.D. on 08/14/2021 at 16:58 Approved by: Earnest Mann M.D. on 08/14/2021 at 17:20
== END ==
PROVIDERS: PCP Family Medicine; Referring Provider Physical Medicine & Rehabilitation; Visit Provider Physical Medicine & Rehabilitation
DX: M51.26 Other intervertebral disc displacement, lumbar region (principal); M41.80 Other forms of scoliosis, site unspecified; M51.36 Other intervertebral disc degeneration, lumbar region; M51.37 Other intervertebral disc degeneration, lumbosacral region; M48.061 Spinal stenosis, lumbar region without neurogenic claudication; M48.07 Spinal stenosis, lumbosacral region; M47.816 Spondylosis without myelopathy or radiculopathy, lumbar region; M47.817 Spondylosis without myelopathy or radiculopathy, lumbosacral region
CPT/HCPCS: 72148

== ENCOUNTER → 2021-12-18 11:02 | Outpatient (CLI) | payer OTHER, SELFPAY ==
[2021-12-18 13:45] LABS: COVID19 -Nasal RAPID Negative (Negative)
== END ==
PROVIDERS: PCP Family Medicine; Visit Provider Physical Medicine & Rehabilitation
DX: Z20.822 Contact with and (suspected) exposure to COVID-19 (principal)
CPT/HCPCS: 87635; C9803

== ENCOUNTER 2021-12-19 12:30 | Outpatient (CLI) | payer OTHER, SELFPAY ==
[2021-12-19] VITALS (8 sets, daily range): BP systolic 116–151; BP diastolic 61–78; PULSE 59–67; RESP 17–20; TEMP 36.2; O2SAT 97–100
--- NOTE | 2021-12-19 12:32 | DI.RAD.S_ITS ---
PROCEDURE: PAIN L INTERLAMINAR/CAUDAL INJ INDICATIONS: SPONDYLOSIS COMPARISON: [facility], MR, MR LUMBAR SPINE WO CON, 08/14/2021, 11:12. FINDINGS: Fluoroscopic spot filming was performed to verify placement of a spinal needle at the L1-L2 level, as labeled on the films. Appropriate location of the needle tip was confirmed by injection of iodinated contrast. IMPRESSION: Intraprocedural examination within normal limits. Dictated by: Dennys Garcia M.D. on 12/19/2021 at 13:59 Approved by: Dennys Garcia M.D. on 12/19/2021 at 13:59
[2021-12-19] MEDS: MIDAZOLAM 2 MG/2 ML VIAL IV (13:26)
[2021-12-19] MEDS: DEXAMETHASONE 10 MG/ML VIAL 20 MG INJ (13:31)
[2021-12-19] MEDS: IOPAMIDOL 15 ML VIAL 3 ML INJ (13:31)
[2021-12-19] MEDS: BETAMETHASONE 30 MG/5 ML MDV 6 MG INJ (13:31)
[2021-12-19] MEDS: BUPIVACAINE 0.25% (PF) VIAL 2 ML INJ (13:31)
--- NOTE | 2021-12-19 13:44 | P.PCN_ITS ---
Date/Time/Diagnoses Date of procedure: 12/19/21 Time of procedure: 13:44 Pre-procedure diagnosis: 1. HNP WITH RADICULAR FEATURES, 2. MULTILEVEL CENTRAL STENOSIS, Post-procedure diagnosis: same Procedure Notes Procedure: 1. FLUOROSCOPICALLY GUIDED CONTRAST CONTROLLED INTERLAMINAR EPIDURAL STEROID INJECTION - L1/2 Indications: Sharron is referred by Dr. Cook for treatment of Bilateral Foraminal Stenosis L>R LE symptoms. Physician: Nasim Child Total Fluoroscopy time (seconds): 8 Total sedation minutes: 13 Complications: none Procedure in detail & Post-procedure care: FINDINGS Multilevel Central Spinal Stenosis with Nerve Root Compression DESCRIPTION OF PROCEDURE Fluoroscopically guided, contrast-controlled L1/2 translaminar epidural steroid injection. Following review of allergy and review of potential side effects and complications, including, but not necessarily limited to, infection, allergic reaction, local tissue breakdown, temporary as well as permanent nerve injury, paralysis, stroke and possible , the patient indicated that the patient understood and agreed to proceed. An informed consent document was signed by the patient, witnessed by a nurse, and placed in the patient's chart. Additionally, other treatment options including modalities, medications, and physical therapy were reviewed with the patient. After review of previous anaesthesic history and IV conscious sedation the patient was deemed safe to proceed with todays procedure with IV conscious sedation as ASA class II designation. Safety time-out was performed to confirm patient ID, procedure to be performed and site of procedure. IV sedation was accomplished with a combination of 2mg of Versed was administered by the RN after DO order, titrated to patient comfort during the course of the procedure while the patient remained responsive to all verbal commands In the prone position, following sterile prep and drape of the lumbar region, the L1/2 translaminar space was identified fluoroscopically. The skin was anesthetized via a 25-gauge, 1.5-inch needle with 1% lidocaine solution. At this point, a 22-gauge short bevel spinal needle was atraumatically introduced and advanced under fluoroscopic guidance into the region of the L1/2 translaminar space. Depth was confirmed on lateral view. Radiological data, including multiple fluoroscopic views of the lumbar spine, reveal a spinal needle at the L1/2 translaminar space. Lateral views then show placement of the needle in the epidural space. Subsequent views show contrast material flowing superiorly and inferiorly in the epidural space. No vascular or intrathecal uptake is observed. At this point, using loss of resistance technique with saline and air, the epidural space was entered. This was confirmed following negative aspiration with injection of approximately 1.5 cc of Isovue 200, showing excellent epidural flow without vascular or intrathecal uptake. At this point, 1 cc of 1% lidocai ne solution combined with 3cc or 20mg of dexamethasone and 6mg of betamethasone was injected without incident. The patient tolerated the procedure well without signs or symptoms of complications prior to transfer to the recovery area continued monitoring without incident. The patient was then transferred to the recovery area where they were observed for an appropriate period of time after the injection. The patient reported a VAS score of 6 prior to the procedure and a post- procedure VAS of 0. POST OP INSTRUCTIONS The patient was provided a Pain Log to continue to record their response to the target-specific procedure prior to follow-up visit with their referring physician. Additionally, specific post-injection care instructions and a contact number to our office were provided if concerns arise regarding possible complications associated with the procedure are suspected.
== END 2021-12-19 14:02 | disposition home or self-care (01) ==
PROVIDERS: PCP Family Medicine; Referring Provider Physical Medicine & Rehabilitation; Visit Provider Physical Medicine & Rehabilitation
DX: M51.16 Intervertebral disc disorders with radiculopathy, lumbar region (principal)
CPT/HCPCS: 62323; 99152; J0702; J1100; J2250

== ENCOUNTER → 2022-12-03 11:58 | Outpatient (CLI) | payer OTHER, SELFPAY ==
--- NOTE | 2022-12-03 12:00 | DI.RAD.S_ITS ---
PROCEDURE: XR CERVICAL SPINE 4V OR 5V INDICATIONS: axial neck pain s/p breast surgery 07/2022 TECHNIQUE: 5 views of the cervical spine acquired. COMPARISON: None. FINDINGS: Bones: No fractures or dislocations to the C7 level. Moderate disc height loss at C5-6, C6-7, C7-T1. Mild disc height loss at remaining levels. Diffuse facet arthrosis. Moderate to severe neural foraminal narrowing at the left side of C6-7. Soft tissues: No prevertebral soft tissue swelling. IMPRESSION: Mild to moderate, multilevel degenerative disc disease and diffuse facet arthrosis. Moderate to severe neural foraminal narrowing at the left side of C6-7. Dictated by: Robert Corley M.D. on 12/03/2022 at 15:48 Approved by: Robert Corley M.D. on 12/03/2022 at 15:49
== END ==
PROVIDERS: PCP Family Medicine; Referring Provider Physical Medicine & Rehabilitation; Visit Provider Physical Medicine & Rehabilitation
DX: M47.812 Spondylosis without myelopathy or radiculopathy, cervical region (principal); M48.02 Spinal stenosis, cervical region; M50.30 Other cervical disc degeneration, unspecified cervical region
CPT/HCPCS: 72050

== ENCOUNTER → 2023-01-07 07:47 | Outpatient (CLI) | payer OTHER, SELFPAY ==
--- NOTE | 2023-01-07 08:06 | DI.MRI.S_ITS ---
PROCEDURE: MR KNEE RT WO CON INDICATIONS: Pain in right knee TECHNIQUE: Noncontrast sagittal PD fast spin echo and T2 fast spin echo with fat saturation, sagittal 3-D FLASH with fat saturation; coronal T1 spin echo and PD fast spin echo with fat saturation, and axial PD fast spin echo with fat saturation through the knee. COMPARISON: None. FINDINGS: Image quality: Excellent. Anterior Cruciate Ligament: Intact. Posterior Cruciate Ligament: Intact. Medial Collateral Ligament: Intact. Lateral Collateral Ligament: Intact. Medial Meniscus: Horizontal oblique tearing of the body of the medial meniscus extending to the middle third of the tibial articular surface. Lateral Meniscus: Complex tearing of the lateral meniscus with a horizontal oblique component at the meniscal body and a vertical longitudinal component at the anterior horn. Medial and Lateral Tendons: The semimembranosus tendon insertions and meniscocapsular junction appear intact. Visualized portions of the pes anserinus tendons appear normal. No abnormal bursal fluid. The long and short heads of the biceps femoris tendon appear intact. The popliteus tendon appears intact. No signs of posterolateral corner injury. Iliotibial band appears normal. Anterior Structures: The quadriceps and patellar tendons appear intact. No patellar subluxation. A congenitally shallow trochlear groove is seen with lateral patellar tilting and mild lateral patellar subluxation. The tibial tubercle-trochlear groove distance is within normal limits. Mild edema at the superolateral aspect of the infrapatellar fat pad. Bones: Mild osseous edema is seen within the central tibial plateau near the anterior root attachment of the lateral meniscus that is likely reactive versus secondary to an osseous contusion or overlying cartilage loss. Intraosseous ganglion is seen within the posterior portion of the central tibial plateau. Degenerative changes are noted at the proximal tibiofibular articulation. Medial Femorotibial Cartilage: Full-thickness cartilage loss is seen at the central weight-bearing portion of the medial femoral condyle with subchondral osteophyte formation and small marginal osteophytes. Lateral Femorotibial Cartilage: High-grade and full-thickness cartilage loss is seen at the central to posterior portion of the lateral femorotibial compartment. Patellofemoral Cartilage: Full-thickness cartilage loss is seen in the patellofemoral compartment at the lateral patellar facet with subchondral cystic changes multifocal moderate to high-grade cartilage loss is seen in the anterior compartment. Soft Tissues: There is a small joint effusion. A mildly edematous ossified loose body is seen at the posterior intercondylar notch measuring approximately 10 x 3 x 5 mm. Small medial popliteal cyst. The musculature surrounding the knee is normal in bulk. IMPRESSION: 1. Complex tearing of the lateral meniscus with a horizontal oblique component at the meniscal body extending to the middle third of the tibial articular surface and a vertical longitudinal component at the anterior horn involving the anterior root attachment. Mild adjacent osseous edema is most likely reactive, versus secondary to an osseous contusion or overlying cartilage loss. 2. Horizontal oblique tearing of the body of the medial meniscus extending to the middle third of the tibial articular surface. 3. 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 4. Cruciate and collateral ligaments are intact. 5. 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 Mild edema at the superolateral aspect of Hoffa's fat pad is nonspecific but can be seen in the setting of lateral femoral condyle-patellar tendon friction syndrome. 6. Small joint effusion with a 10 mm mildly edematous ossified loose body posterior to the intercondylar notch. Small medial popliteal cyst. Approved by: Rakesh Nolasco M.D. on 01/07/2023 at 13:58
== END ==
PROVIDERS: PCP Family Medicine; Referring Provider Physician Assistant Medical; Visit Provider Physician Assistant Medical
DX: S83.271A Complex tear of lateral meniscus, current injury, right knee, initial encounter (principal); S83.241A Other tear of medial meniscus, current injury, right knee, initial encounter; S83.011A Lateral subluxation of right patella, initial encounter; M17.11 Unilateral primary osteoarthritis, right knee; M25.461 Effusion, right knee; M71.21 Synovial cyst of popliteal space [Baker], right knee; M25.561 Pain in right knee
CPT/HCPCS: 73721

== ENCOUNTER → 2025-01-15 10:50 | Outpatient (CLI) | payer OTHER, SELFPAY ==
--- NOTE | 2025-01-15 10:52 | DI.RAD.S_ITS ---
PROCEDURE: XR LUMBAR SPINE MIN 4V INDICATIONS: BACK PAIN TECHNIQUE: 5 views of the lumbar spine were acquired, including bilateral oblique views. COMPARISON: [facility], CR, XR LUMBAR SPINE MIN 4V, 08/10/2020, 10:38. [facility], CR, XR LUMBAR SPINE MIN 4V, 01/31/2018, 12:12. FINDINGS: Bones: 5 nonrib-bearing vertebrae are present. Lumbar dextroscoliosis with stepwise retrolisthesis from L1-L4 and stepwise anterolisthesis of L4 on L5 and L5 on S1. Diffuse osseous demineralization. No vertebral body compression fractures. No suspicious bony lesions. Multilevel spondylosis is greatest at L1-2 with advanced inferior lumbar facet arthrosis. Soft tissues: Overlying bowel gas pattern is normal. No suspicious soft tissue calcifications. Cholecystectomy clips in the right upper quadrant. Surgical clips in the right hemipelvis. Surgical clips in the left breast. Oblique images: No pars defects. IMPRESSION: Lumbar dextroscoliosis with stepwise retrolisthesis from L1-L4 and stepwise anterolisthesis from L4-S1. Advanced spondylosis in the lumbar spine. Dictated by: Jayy Trinh M.D. on 01/15/2025 at 12:18 Approved by: Jayy Trinh M.D. on 01/15/2025 at 12:22
== END ==
PROVIDERS: PCP Family Medicine; Referring Provider Physical Medicine & Rehabilitation; Visit Provider Physical Medicine & Rehabilitation
DX: M47.27 Other spondylosis with radiculopathy, lumbosacral region (principal); M47.26 Other spondylosis with radiculopathy, lumbar region; M43.16 Spondylolisthesis, lumbar region
CPT/HCPCS: 72110

== ENCOUNTER 2025-02-18 12:48 | Outpatient (CLI) | payer OTHER, SELFPAY ==
[2025-02-18] VITALS (8 sets, daily range): BP systolic 124–175; BP diastolic 72–84; PULSE 66–81; RESP 16–26; TEMP 36.6; O2SAT 96–100
[2025-02-18] MEDS: MIDAZOLAM 2 MG/2 ML VIAL IV ×2 (13:56→14:01)
[2025-02-18] MEDS: LIDOCAINE 1% 20 ML 5 ML INJ (14:00)
[2025-02-18] MEDS: BETAMETHASONE 30 MG/5 ML MDV 12 MG INJ (14:03)
[2025-02-18] MEDS: BETAMETHASONE 30 MG/5 ML MDV 6 MG INJ (14:04)
--- NOTE | 2025-02-18 14:20 | PM.PROC.IR.1 ---
Date/Time/Diagnoses Date of procedure: 02/18/25 Time of procedure: 14:20 Pre-procedure diagnosis: 1. FORAMINAL STENOSIS WITH LE SYMPTOMS Procedure Notes Procedure: 1. FLUOROSCOPICALLY GUIDED CONTRAST CONTROLLED TRANSFORAMINAL EPIDURAL STEROID INJECTION - BILATERAL L4/5 TFESI Indications: Sharron is referred by Dr. Cook for treatment of Foraminal Stenosis with bilateral LE Symptoms Physician: Nasim Child Total Fluoroscopy time (seconds): 19 Total sedation minutes: 19 Complications: none Procedure in detail & Post-procedure care: FINDINGS Foraminal Nerve Root Compression secondary to disc disease and facet hypertrophy DESCRIPTION OF PROCEDURE Following review of allergy and review of potential side effects and complications, including, but not necessarily limited to, infection, allergic reaction, local tissue breakdown, stroke, temporary or permanent nerve injury, paralysis, and possible , the patient indicated that the patient understood and agreed to proceed. An informed consent document was signed by the patient, witnessed by a nurse, and placed in the patient's chart. Additionally, other treatment options including medications, modalities, and physical therapy were reviewed with the patient. After review of previous anaesthesic history and IV conscious sedation the patient was deemed safe to proceed with today?s procedure with IV conscious sedation as ASA class II designation. Safety time-out was performed to confirm patient ID, procedure to be performed and site of procedure. IV sedation was accomplished with a combination of 4mg of Versed was administered by the RN after DO order, titrated to patient comfort during the course of the procedure while the patient remained responsive to all verbal commands In the prone position following sterile prep and drape of the lumbar region, the right L4/5 posterior neuroforamen was identified fluoroscopically. The skin was anesthetized via a 25-gauge 1.5-inch needle with 1% lidocaine solution. At this point, a 25-gauge 3.5-inch spinal needle was atraumatically introduced and advanced under fluoroscopic guidance through the posterior right L4/5 neuroforamen to approximately the anterior aspect of the canal. Depth was confirmed on lateral view. Following negative aspiration, injection of approximately 1.5cc of Isovue 200 under live fluoroscopy in the AP view confirmed excellent flow along the nerve root, into the epidural space without vascular or intrathecal uptake observed Radiological data, including multiple fluoroscopic views of the lumbosacral spine, reveal a spinal needle at the right L4/5 posterior neuroforamen. Subsequent views show flow of contrast material flowing superiorly and inferiorly along the nerve root confirming epidural flow. Subsequently, a test dose of 1.5cc of 1% lidocaine solution was administered and patient was observed for two minutes for signs or symptoms of complications, including abdominal pain, shortness of breath, bilateral upper or lower extremity weakness, nausea and vomiting, prior to steroid injection. At this point, a total of 2cc or 10mg of dexamethasone and 6mg betamethasone was injected without incident. Attention was then refocused to the left L4/5 level where the identical procedure was replicated. The procedure tolerated the procedure well without signs or symptoms of complications prior to transfer to the recovery area continued monitoring without incident. The patient was then transferred to the recovery area where they were observed for an appropriate time after the injection. The patient reported a VAS score of 7 prior to the procedure and a post-procedure VAS of 0. POST OP INSTRUCTIONS The patient was provided a Pain Log to continue to record their response to the target-specific procedure prior to follow-up visit with their referring physician. Additionally, specific post-injection care instructions and a contact number to our office were provided if concerns arise regarding possible complications associated with the procedure are suspected.
== END 2025-02-18 14:51 | disposition home or self-care (01) ==
LOC: RAD 12:48
PROVIDERS: PCP Family Medicine; Referring Provider Family Medicine; Visit Provider Physical Medicine & Rehabilitation
DX: M48.061 Spinal stenosis, lumbar region without neurogenic claudication (principal); M51.16 Intervertebral disc disorders with radiculopathy, lumbar region; M47.26 Other spondylosis with radiculopathy, lumbar region
CPT/HCPCS: 64483; 99152; J0702; J1100; J2250

== ENCOUNTER → 2025-05-03 10:21 | Outpatient (CLI) | payer OTHER, SELFPAY ==
--- NOTE | 2025-05-03 10:24 | DI.RAD.S_ITS ---
PROCEDURE: XR KNEE LT 3V INDICATIONS: LEFT KNEE PAIN TECHNIQUE: 3 views of the knee were acquired. COMPARISON: None. FINDINGS: Bones: No fractures or dislocations. No suspicious bony lesions. Moderate to severe medial compartment joint space narrowing and osteophytosis. Moderate osteophytosis of the lateral and anterior compartment. Soft tissues: No joint effusion. No suspicious soft tissue calcifications. IMPRESSION: No acute bony abnormality or significant effusion. Tricompartmental osteoarthrosis, worse in the medial compartment. Approved by: Jennifer Garrido M.D.,Ph.D. on 05/03/2025 at 11:11
== END ==
PROVIDERS: PCP Family Medicine; Referring Provider Physical Medicine & Rehabilitation; Visit Provider Physical Medicine & Rehabilitation
DX: M17.12 Unilateral primary osteoarthritis, left knee (principal); M25.562 Pain in left knee
CPT/HCPCS: 73562